=== PATIENT | female | born 1945 | race Caucasian/White ===

== ENCOUNTER 2017-09-10 11:44 | Day surgery (SDC) | payer MEDICARE, OTHER ==
[~2017-09-10] VITALS: Ht 162.6 cm; Wt 87.3 kg
[~2017-09-10 11:44] MED LIST: Allergy Relief10 M1 PO; Prinivil10 MG PO; RANI150; SPIR25 PO
== END 2017-09-10 14:17 | disposition home or self-care (01) ==
LOC: ORSCSDS 11:44
PROVIDERS: Internal Medicine Gastroenterology
PROC: 0DBK8ZX Excision of Ascending Colon, Via Natural or Artificial Opening Endoscopic, Diagnostic (ICD-10-PCS; principal; 2017-09-10 13:00)
DX: Z12.11 Encounter for screening for malignant neoplasm of colon (principal); D12.2 Benign neoplasm of ascending colon; K64.8 Other hemorrhoids; Z86.010 Personal history of colon polyps; K57.30 Diverticulosis of large intestine without perforation or abscess without bleeding; E66.9 Obesity, unspecified; Z68.34 Body mass index [BMI] 34.0-34.9, adult; Z79.899 Other long term (current) drug therapy; K21.9 Gastro-esophageal reflux disease without esophagitis
CPT/HCPCS: 88305; J7120

== ENCOUNTER 2018-11-01 20:52 | Emergency (ER) | payer MEDICARE, OTHER ==
[~2018-11-01] VITALS: Ht 160 cm; Wt 90.7 kg
[2018-11-01] MEDS ORDERED: XARELTO15 MG PO ×2 (22:41→23:18)
[2018-11-01] MEDS ORDERED: GABA250SO PO (22:43)
[2018-11-01] MEDS ORDERED: LEVOCETIRIZINE D5 MG PO (22:43)
[2018-11-01] MEDS ORDERED: Prilosec Otc20 MG PO (22:44)
[2018-11-01] MEDS ORDERED: MELA3 PO (22:45)
== END 2018-11-01 23:23 | disposition home or self-care (01) ==
LOC: ER 20:52
DX: I82.401 Acute embolism and thrombosis of unspecified deep veins of right lower extremity (principal); Z79.899 Other long term (current) drug therapy; I10 Essential (primary) hypertension
CPT/HCPCS: 99282

== ENCOUNTER 2019-02-05 11:49 | Day surgery (SDC) | payer MEDICARE, OTHER ==
[~2019-02-05] VITALS: Ht 160 cm; Wt 89.0 kg
[~2019-02-05 11:49] MED LIST changes: +GABAPENTIN250 MG/5 M PO; +LEVOCETIRIZINE D5 MG PO; +MELA3 PO; +Prilosec Otc20 MG PO; +XARELTO15 MG PO; +XARELTO20 MG PO
--- NOTE | 2019-02-05 12:38 | NUR ---
LUNGS CLEAR BILAT POST AND ANT. PAIN SCALE 0/10
--- NOTE | 2019-02-05 13:30 | NUR ---
PT TALKING WITH DAUGHTER; CALL LIGHT IN REACH.
--- NOTE | 2019-02-05 14:36 | NUR ---
DR CADENA IN ROOM TO SEE PT.
--- NOTE | 2019-02-05 14:51 | NUR ---
FULL REPORT PROVIDED CARLENE OLMOS TO ASSUME CARE OF PT IN RECOVERY ROOM.
--- NOTE | 2019-02-05 18:58 | NUR ---
1740-ASSUMED CARE OF PT. PT IS ALERT AND ORIENTED. PT IS FOLLOWING COMMANDS. PT HAS A VENOUSE SHEATH TO THE R GROIN WHERE IVC FILTER WAS PLACED. PT HAS A POPLITEAL & ANKLE VENOUS SHEATH. WHERE TPA IS RUNNING THROUGH THE ANKLE SHEATH. NO BLEEDING NOTED AT THIS TIME. PT IS AFEBRILE. PALPABLE PULSES. 1749-STARTED HEPARIN DRIP @ 300 UNITS/HR ORDERED INFUSING TO THE L AC IV. 1839-COMPLAINTS OF A SLIGHT HEADACHE. PT STATED SHE TAKES COFFEE EVERYDAY. BROUGHT IN PT'S DINNER. 1849-DR. CADENA CALLED. UPDATED HIM OF PT'S STATUS. CLARIFIED WITH DR. CADENA REGARDING POPLITEAL VENOUS SHEATH ACCESS.
--- NOTE | 2019-02-05 20:35 | NUR ---
PT RESTING IN BED. A/O X4. DENIES PAIN. HAS A VENOUS SHEATH TO R GROIN, WHERE IVC FILTER WAS PLACED, THAT IS COVERED WITH CLEAR OCCLUSIVE DRESSING. NO SIGNS OF BLEED FROM THAT SITE. ALSO HAS A POPLITEAL AND ANKLE SHEATH TO R SIDE THAT HAS TPA RUNNING INTO IT. PALPABLE PULSES. PT IS DOING WELL KEEPING LEG STRAIGHT. ASSISTED WITH BEDPAN. NO SIGN OF DISTRESS.
--- NOTE | 2019-02-06 00:24 | NUR ---
PT RESTING IN BED. A/O X4. NO COMPLAINTS. 2+ PEDAL PULSES. NO SIGNS OF BLEEDING FROM GROIN, ANKLE OR POPLITEAL SHEATHS. PT IS DOING WELL LAYING FLAT WITHOUT FLEXING R LEG. DECLINES PILLOWS TO BE PROPPED UNDER HER.
--- NOTE | 2019-02-06 08:15 | NUR ---
BEGINNING OF SHIFT Assumed care at 0700 with Danni CONCEPCION. Report recieved from Laquita CONCEPCION. Pt is alert and oriented, able to communicate needs. Verbalizes need to use bedpan. Pt follows instructions for mobility limitations when repositioning in bed. Groin sheath to right leg in place with transparent dressing C/D/I. Two sheaths noted on posterior leg, with C/D/I dressings, each sheath has alteplase infusing. Heparin infusing per orders to right AC.
--- NOTE | 2019-02-06 08:18 | NUR ---
BEGINNING OF SHIFT Assumed care at 0700 with Danni CONCEPCION. Report recieved from Laquita CONCEPCION. Pt is alert and oriented, able to communicate needs. Verbalizes need to use bedpan. Pt follows instructions for mobility limitations when repositioning in bed. Venous groin sheath to right leg in place with transparent dressing C/D/I. Two venous sheaths noted on posterior leg - popliteal and tibial, with C/D/I dressings, each sheath has alteplase infusing. Heparin infusing per orders to right AC.
--- NOTE | 2019-02-06 12:11 | NUR ---
UPDATE No changes since shift assessment. Pt remains on alteplase. Per Dr Win, alteplase is to continue infusing until pt is taken to systems testing laboratory technician. Fibrinogen lab drawn from existing peripheral IV access. Pt and family updated on plan of care.
--- NOTE | 2019-02-06 18:24 | NUR ---
SHIFT SUMMARY Pt returned from laboratory associate around 1720. Venous sheaths are no longer in place. Devin patch present to right femoral venous site and right popliteal venous site. Transparent dressing to right tibial venous site. Pt has new right jugular venous site dressed with a cloth dot; dressing C/D/I. Pt had 50 mL of clear-brown emesis. No coffee-ground appearance to emesis. Nausea and vomiting resolved with administration of zofran. Two attempts to reach Dr Win via cell phone to ask if xarelto is to be restarted tonight. Pt states she would prefer to stay overnight in the hospital and go home in the morning. Pt currently has two visitors in the room. Pt eating dinnner at this time, tolerating well.
--- NOTE | 2019-02-06 20:00 | NUR ---
ASSUMED CARE OF PT AT 1915. REPORT RECEIVED PARTIALLY AT BEDSIDE. PT PRESENTS IN BED. ALERT AND ORIENTED. PLEASANT AND COOPERATIVE WITH CARE AND ASSESSMENT. PT'S ACCESS SITES CHECKED AND VERIFIED WITH OFFGOING RN. WILL REVIEW CHART AND PLAN OF CARE FOR THIS PT.
--- NOTE | 2019-02-06 23:00 | NUR ---
PT HAS BEEN ABLE TO STAND WITH ASSISTANCE AND PIVOT TRANSFER TO BEDSIDE COMMODE. DID DON ORTHOSTATIC BLOOD PRESSURES FOR POSITION CHANGES. SEE GRAPHIC FLOWSHEET FOR DETAILS. PT DOES CLAIM SHE HAS SLIGHT VERTIGO WHILE STANDING. PT VOIDS Q.S. PASSES FLATUS. PT'S DAUGHT HAS LEFT FOR THE NIGHT. AND ARRANGED, SHE WILL RETURN IN AM TO PROVIDE TRANSPORTATION FOR PT UPON DISCHARGE.
--- NOTE | 2019-02-07 03:00 | NUR ---
PT CLAIMS THAT HER VERTIGO HAS IMPROVED. HAS HAD SOME INDIGESTION THIS AM. ACCESS SITES ALL REMAIN UNCHANGED FROM CHANGE OF SHIFT ASSESSMENT WITH OFFGOING RN. WILL CONTINUE TO MONITOR.
--- NOTE | 2019-02-07 06:27 | NUR ---
PT HAS BEEN MEDICATED ONCE THIS AM WITH 5 MG OXYCODONE. PT STATES THAT SHE IS HAVING SEVERE HEADACHES FROM POSSIBLY BEING WITHOUT COFFEE SINCE ADMIT. PT CURRENTLY RESTING IN BED. PT HAS BEEN UP TO BEDSIDE COMMODE SEVERAL TIMES THIS NIGHT WITHOUT COMPLAINTS OF VERTIGO. PT REMAINS IN SINUS RHYTHM SINUS JIN. MAINTAINS ON ROOM AIR WHEREAS SATURATIONS REMAIN > 90 PERCENT. NO COMPLAINTS OF CHEST PAIN OR PRESSURE. LOWER EXTREMITIES REMAIN EQUALLY WARM. NO CHANGES TO ACCESS SITES. NO HEMATOMAS OR OOZING. WILL CONTINUE TO MONITOR PT, AND WILL REPORT OFF TO ONCOMING RN.
--- NOTE | 2019-02-07 07:27 | NUR ---
ASSUMED CARE OF PT. PT IS ALERT AND ORIENTED. PT IS COMPLAINING OF A HEADACHE. SHE STATED SHE HAS NOT HAD HER COFFEE FOR 3 DAYS. SHE DRINKS COFFEE DAILY STATED. PUNCTURE SITES R GROIN, R NECK, R POPLITEAL, R TIBIAL ARE STABLE. NO HEMATOMA OR BLEEDING NOTED. PT HAS BEEN GETTING OUT OF BED. PT STATED SHE'S READY TO GO HOME. PT HAS DISCHARGE ORDERS WRITTEN FROM DR. CADENA.
--- NOTE | 2019-02-07 10:40 | NUR ---
READ DISCHARGE INSTRUCITIONS TO PATIENT AND DAUGHTER. SEND DISCHARGE PACKET WITH THEM. IV DISCONTINUED.
--- NOTE | 2019-02-07 10:41 | NUR ---
1040-READ DISCHARGE INSTRUCITIONS TO PATIENT AND DAUGHTER. SEND DISCHARGE PACKET WITH THEM. IVs TO R/L AC WERE DISCONTINUED BEFORE PT WAS SENT HOME.
[2019-02-08] MEDS ORDERED: LEVOCETIRIZINE D5 MG PO (17:50)
[2019-02-08] MEDS ORDERED: CEPH500 PO (19:31)
== END 2019-02-07 10:40 | disposition home or self-care (01) ==
LOC: MHTC 11:49 → ICUW 16:02 → MHTC 02-07 10:40
DX: I82.501 Chronic embolism and thrombosis of unspecified deep veins of right lower extremity (principal); E78.5 Hyperlipidemia, unspecified; I10 Essential (primary) hypertension; K21.9 Gastro-esophageal reflux disease without esophagitis; I87.8 Other specified disorders of veins
CPT/HCPCS: 36005; 37191; 37193; 37212; 37214; 75820; 76937; 85384; 96374; 96375; 96376; 99152; 99153; C1751; C1769; C1880; C1887; C1894; G0378; J1644; J2250; J2405; J2997; J3010; J7030; J7050; Q9967

== ENCOUNTER 2019-02-08 15:50 | Emergency (ER) | payer MEDICARE, OTHER ==
[~2019-02-08] VITALS: Ht 160 cm; Wt 88.5 kg
[2019-02-08 16:45] LABS: BASOPHILS ABSOLUTE AUTO 0.01 K/mm3 (0.00-0.23); BASOPHILS PERCENT AUTO 0 % (0-2); EOSINOPHILS ABSOLUTE AUTO 0.13 K/mm3 (0.00-0.68); EOSINOPHILS PERCENT AUTO 2 % (0-6); Hematocrit 37.5 % (33.0-51.0); Hemoglobin 12.4 g/dL (11.5-16.0); IMMATURE GRAN ABSOLUTE AUTO 0.03 K/mm3 (0.00-0.10); IMMATURE GRAN PERCENT AUTO 1 % (0-1); LYMPHOCYTES ABSOLUTE AUTO 1.78 K/mm3 (0.84-5.20); LYMPHOCYTES PERCENT AUTO 28 % (21-46); MONOCYTES ABSOLUTE AUTO 0.84 K/mm3 (0.16-1.47); MONOCYTES PERCENT AUTO 13 % (4-13); Mean Corpuscular HGB 34.4 pg (26.0-34.0); Mean Corpuscular HGB Conc 33.1 g/dL (31.5-36.5); Mean Corpuscular Volume 104 fL (80-100); Mean Platelet Volume 9.9 fL (9.1-12.4); NEUTROPHILS PERCENT AUTO 56 % (41-73); Platelet Count 266 K/mm3 (150-400); RDW Coefficient Variation 14.5 % (11.7-14.2); RDW Standard Deviation 55.5 fL (35.1-46.3); White Blood Cell Count 6.29 K/mm3 (4.00-11.30)
[2019-02-08 17:00] LABS: International Normalized Ratio 1.13; Prothrombin Time Results 11.8 Sec (9.7-11.5)
[2019-02-08 17:07] LABS: Alanine Aminotransfer (ALT/SGP 43 U/L (12-78); Albumin, Blood 3.6 g/dL (3.4-5.0); Albumin/Globulin Ratio 1.1 (0.8-1.8); Alk Phos 76 U/L (50-136); Anion Gap 8 mmol/L (6-16); Aspartate Aminotrans (AST/SGOT 33 U/L (12-37); Bilirubin, Total 0.2 mg/dL (0.1-1.0); Blood Urea Nitrogen 18 mg/dL (8-24); Bun/Creatinine Ratio 22.1 (12.0-20.0); CO2, Blood 25 mmol/L (21-32); Calcium, Blood 9.4 mg/dL (8.5-10.1); Chloride, Blood 105 mmol/L (98-108); Creatinine, Blood 0.82 mg/dL (0.40-1.00); Globulin, Blood 3.3 g/dL (2.2-4.0); Glomerular Filtration Rate >60 (60-); Glucose, Blood 120 mg/dL (70-99); Potassium, Blood 3.8 mmol/L (3.5-5.5); Sodium, Blood 138 mmol/L (136-145); Total Protein, Blood 6.9 g/dL (6.4-8.2)
[2019-02-08] MEDS ORDERED: LEVOCETIRIZINE D5 MG PO (17:50)
[2019-02-08 18:14] LABS: Source, Urine Clean Catch
[2019-02-08 18:31] LABS: Appearance, Urine Hazy (Clear); Bilirubin, Urine Neg (Neg); Blood, Urine 1+ (Neg); Color, Urine Yellow (P-Yellow); Glucose Qualitative, Urine Neg (Neg); Ketones, Urine Neg (Neg); Leukocyte Esterase, Urine 1+ (Neg); Nitrite, Urine Pos (Neg); Protein, Urine Neg (Neg); Specific Gravity, Urine 1.015 (1.003-1.022); Urobilinogen, Urine NORM (Normal); pH, Urine 6.5 (5.0-8.0)
[2019-02-08 18:44] LABS: Red Blood Cells, Urine 0-2 /hpf (0-2); Squamous Epithelial Cells Few /hpf (Few)
[2019-02-08 18:45] LABS: Bacteria Many /hpf
[2019-02-08] MEDS ORDERED: CEPH500 PO (19:31)
== END 2019-02-08 19:50 | disposition home or self-care (01) ==
LOC: ER 15:50
PROVIDERS: Physician Assistant
DX: S09.90XA Unspecified injury of head, initial encounter (principal); N39.0 Urinary tract infection, site not specified; R42 Dizziness and giddiness; W22.8XXA Striking against or struck by other objects, initial encounter; Z79.899 Other long term (current) drug therapy; I10 Essential (primary) hypertension
CPT/HCPCS: 36415; 70450; 80053; 81001; 85025; 85610; 87077; 87086; 87186; 93005; 93010; 96365; 99284-25; J0696

== ENCOUNTER 2019-02-28 11:33 | Emergency (ER) | payer MEDICARE, OTHER ==
[~2019-02-28] VITALS: Ht 162.6 cm; Wt 90.3 kg
[~2019-02-28 11:33] MED LIST changes: +CEPH500 PO
[2019-02-28] MEDS ORDERED: Norco 5-325 Ta1 EACH PO (12:10)
[2019-02-28] MEDS ORDERED: Bactrim Ds Tab1 EACH PO (12:10)
[2019-02-28] MEDS ORDERED: Keflex500 MG PO (12:10)
[2019-02-28] MEDS ORDERED: TEST STRIPS1 EACH XX (12:12)
== END 2019-02-28 12:35 | disposition home or self-care (01) ==
LOC: ER 11:33
DX: L03.221 Cellulitis of neck (principal); L03.311 Cellulitis of abdominal wall; I10 Essential (primary) hypertension; K21.9 Gastro-esophageal reflux disease without esophagitis; Z86.718 Personal history of other venous thrombosis and embolism; Z79.899 Other long term (current) drug therapy
CPT/HCPCS: 99282

== ENCOUNTER 2019-04-30 06:31 | Day surgery (SDC) | payer MEDICARE, OTHER ==
[~2019-04-30] VITALS: Ht 162.6 cm; Wt 89.0 kg
[~2019-04-30 06:31] MED LIST changes: +Bactrim Ds Tab1 EACH PO; +Keflex500 MG PO; +Norco 5-325 Ta1 EACH PO; +TEST STRIPS1 EACH XX
== END 2019-04-30 15:00 | disposition home or self-care (01) ==
LOC: MHTC 06:31
DX: Z45.2 Encounter for adjustment and management of vascular access device (principal); I82.509 Chronic embolism and thrombosis of unspecified deep veins of unspecified lower extremity; E78.5 Hyperlipidemia, unspecified; I10 Essential (primary) hypertension; K21.9 Gastro-esophageal reflux disease without esophagitis; M15.9 Polyosteoarthritis, unspecified; Z79.899 Other long term (current) drug therapy
CPT/HCPCS: 36010; 37193; 76937; 99152; 99153; C1769; C1773; C1880; C1887; C1894; J2250; J3010; J7030; Q9967

== ENCOUNTER 2019-05-09 09:39 | Emergency (ER) | payer MEDICARE, OTHER ==
[~2019-05-09] VITALS: Ht 162.6 cm; Wt 87.1 kg
[2019-05-09 10:07] LABS: Source, Urine Catheter
[2019-05-09 10:13] LABS: BASOPHILS ABSOLUTE AUTO 0.02 K/mm3 (0.00-0.23); BASOPHILS PERCENT AUTO 0 % (0-2); EOSINOPHILS ABSOLUTE AUTO 0.07 K/mm3 (0.00-0.68); EOSINOPHILS PERCENT AUTO 1 % (0-6); Hemoglobin 12.6 g/dL (11.5-16.0); IMMATURE GRAN ABSOLUTE AUTO 0.05 K/mm3 (0.00-0.10); IMMATURE GRAN PERCENT AUTO 1 % (0-1); LYMPHOCYTES ABSOLUTE AUTO 1.48 K/mm3 (0.84-5.20); LYMPHOCYTES PERCENT AUTO 20 % (21-46); MONOCYTES ABSOLUTE AUTO 0.52 K/mm3 (0.16-1.47); MONOCYTES PERCENT AUTO 7 % (4-13); Mean Corpuscular HGB 33.3 pg (26.0-34.0); Mean Corpuscular HGB Conc 32.3 g/dL (31.5-36.5); Mean Corpuscular Volume 103 fL (80-100); Mean Platelet Volume 9.9 fL (9.1-12.4); NEUTROPHILS PERCENT AUTO 72 % (41-73); Platelet Count 302 K/mm3 (150-400); RDW Coefficient Variation 14.2 % (11.7-14.2); Red Blood Cell Count 3.78 M/mm3 (3.80-5.20); White Blood Cell Count 7.54 K/mm3 (4.00-11.30)
[2019-05-09 10:14] LABS: Bilirubin, Urine Neg (Neg); Blood, Urine 3+ (Neg); Glucose Qualitative, Urine Neg (Neg); Ketones, Urine Neg (Neg); Leukocyte Esterase, Urine 1+ (Neg); Nitrite, Urine Neg (Neg); Protein, Urine Neg (Neg); Specific Gravity, Urine 1.015 (1.003-1.022); Urobilinogen, Urine NORM (Normal); pH, Urine 6.5 (5.0-8.0)
[2019-05-09 10:24] LABS: Appearance, Urine Hazy (Clear); Bacteria Rare /hpf; Color, Urine Yellow (P-Yellow); Squamous Epithelial Cells Rare /hpf (Few); White Blood Cells, Urine 0-2 /hpf (0-5)
[2019-05-09 10:26] LABS: Alanine Aminotransfer (ALT/SGP 23 U/L (12-78); Albumin, Blood 3.5 g/dL (3.4-5.0); Albumin/Globulin Ratio 0.9 (0.8-1.8); Alk Phos 75 U/L (50-136); Anion Gap 6 mmol/L (6-16); Aspartate Aminotrans (AST/SGOT 19 U/L (12-37); Bilirubin, Total 0.3 mg/dL (0.1-1.0); Blood Urea Nitrogen 18 mg/dL (8-24); Bun/Creatinine Ratio 25.4 (12.0-20.0); CO2, Blood 26 mmol/L (21-32); Chloride, Blood 107 mmol/L (98-108); Creatinine, Blood 0.71 mg/dL (0.40-1.00); Globulin, Blood 3.7 g/dL (2.2-4.0); Glomerular Filtration Rate >60 (60-); Glucose, Blood 127 mg/dL (70-99); Potassium, Blood 4.5 mmol/L (3.5-5.5); Sodium, Blood 139 mmol/L (136-145); Total Protein, Blood 7.2 g/dL (6.4-8.2); Troponin I <0.015 ng/mL (0.000-0.040)
[2019-05-09] MEDS ORDERED: Zofran4 MG PO (14:10)
[2019-05-09] MEDS ORDERED: Medi-Meclizine25 MG PO (14:10)
== END 2019-05-09 15:20 | disposition home or self-care (01) ==
LOC: ER 09:39
PROVIDERS: Emergency Medicine
DX: R42 Dizziness and giddiness (principal); I10 Essential (primary) hypertension; R31.9 Hematuria, unspecified; Z79.899 Other long term (current) drug therapy; Z79.01 Long term (current) use of anticoagulants
CPT/HCPCS: 80053; 81001; 84484; 85025; 87086; 93005; 93010; 96361; 96374; 99284-25; J2405; J7120; P9612

== ENCOUNTER → 2019-05-12 | Outpatient (CLI) | payer MEDICARE, OTHER ==
[~2019-05-12] MED LIST changes: +Medi-Meclizine25 MG PO; +Zofran4 MG PO
[2019-05-12 13:05] LABS: Appearance, Urine Hazy (Clear); Bacteria Many /hpf; Bilirubin, Urine Neg (Neg); Blood, Urine 2+ (Neg); Color, Urine Pale Yellow (P-Yellow); Glucose Qualitative, Urine Neg (Normal); Ketones, Urine Neg (Neg); Leukocyte Esterase, Urine Neg (Neg); Mucus Mod (0-Heavy); Nitrite, Urine Neg (Neg); Protein, Urine Neg (Neg); Squamous Epithelial Cells Mod /hpf (Few); Urobilinogen, Urine NORM (Normal)
== END | disposition home or self-care (01) ==
LOC: LAB SHORT 12:25 → LAB EV 12:25
PROVIDERS: Internal Medicine
DX: R31.21 Asymptomatic microscopic hematuria (principal)
CPT/HCPCS: 81001; 87077; 87086; 87186

== ENCOUNTER → 2019-06-06 | Outpatient (CLI) | payer MEDICARE, OTHER | END | disposition home or self-care (01) | LOC: LAB SHORT 13:01 → PLD 13:01 | DX: C54.1 Malignant neoplasm of endometrium (principal) | CPT/HCPCS: 88305 ==

== ENCOUNTER → 2019-06-06 | Outpatient (CLI) | payer MEDICARE, OTHER ==
[2019-06-09 14:08] LABS: HPV 16 Negative (Negative); HPV 18 Negative (Negative); HPV OTHER HR TYPES Negative (Negative)
== END | disposition home or self-care (01) ==
LOC: LAB SHORT 11:40 → LAB 11:40
PROVIDERS: Obstetrics & Gynecology
DX: Z01.419 Encounter for gynecological examination (general) (routine) without abnormal findings (principal)
CPT/HCPCS: 87624; G0123

== ENCOUNTER → 2019-07-27 | Outpatient (CLI) | payer MEDICARE ==
[2019-07-27 12:30] LABS: BASOPHILS ABSOLUTE AUTO 0.01 K/mm3 (0.00-0.23); BASOPHILS PERCENT AUTO 0 % (0-2); EOSINOPHILS ABSOLUTE AUTO 0.03 K/mm3 (0.00-0.68); EOSINOPHILS PERCENT AUTO 1 % (0-6); Hematocrit 38.9 % (33.0-51.0); Hemoglobin 12.8 g/dL (11.5-16.0); IMMATURE GRAN ABSOLUTE AUTO 0.02 K/mm3 (0.00-0.10); IMMATURE GRAN PERCENT AUTO 0 % (0-1); LYMPHOCYTES PERCENT AUTO 24 % (21-46); MONOCYTES ABSOLUTE AUTO 0.52 K/mm3 (0.16-1.47); MONOCYTES PERCENT AUTO 8 % (4-13); Mean Corpuscular HGB 33.6 pg (26.0-34.0); Mean Corpuscular HGB Conc 32.9 g/dL (31.5-36.5); Mean Corpuscular Volume 102 fL (80-100); Mean Platelet Volume 9.7 fL (9.1-12.4); NEUTROPHILS ABSOLUTE AUTO 4.08 K/mm3 (1.96-9.15); NEUTROPHILS PERCENT AUTO 66 % (41-73); Platelet Count 353 K/mm3 (150-400); RDW Coefficient Variation 13.8 % (11.7-14.2); RDW Standard Deviation 51.9 fL (35.1-46.3); Red Blood Cell Count 3.81 M/mm3 (3.80-5.20); White Blood Cell Count 6.16 K/mm3 (4.00-11.30)
[2019-07-27 12:38] LABS: Alanine Aminotransfer (ALT/SGP 25 U/L (12-78); Albumin, Blood 3.7 g/dL (3.4-5.0); Alk Phos 67 U/L (40-126); Anion Gap 11 mmol/L (6-16); Aspartate Aminotrans (AST/SGOT 16 U/L (12-37); Bilirubin, Total 0.3 mg/dL (0.1-1.0); Blood Urea Nitrogen 11 mg/dL (8-24); Bun/Creatinine Ratio 12.4 (12.0-20.0); CO2, Blood 24 mmol/L (21-32); Calcium, Blood 9.3 mg/dL (8.5-10.1); Chloride, Blood 104 mmol/L (98-108); Creatinine, Blood 0.89 mg/dL (0.40-1.00); Globulin, Blood 3.7 g/dL (2.2-4.0); Glomerular Filtration Rate >60 (60-); Glucose, Blood 102 mg/dL (70-99); Potassium, Blood 3.9 mmol/L (3.5-5.5); Sodium, Blood 139 mmol/L (136-145); Total Protein, Blood 7.4 g/dL (6.4-8.2)
== END | disposition home or self-care (01) ==
LOC: LAB SHORT 12:24 → LAB EV 12:24
PROVIDERS: Physician Assistant
DX: R19.7 Diarrhea, unspecified (principal)
CPT/HCPCS: 80053; 85025

== ENCOUNTER → 2019-07-28 | Outpatient (CLI) | payer MEDICARE ==
[2019-07-28 13:18] LABS: Adenovirus F 40/41 Not Detected (NOT DETECT); Astrovirus Not Detected (NOT DETECT); Campylobacter Sp Not Detected (NOT DETECT); Cryptosporidium Not Detected (NOT DETECT); Cyclospora Cayetanensis Not Detected (NOT DETECT); E. Coli O157 Not Detected (NOT DETECT); Entamoeba Histolytica Not Detected (NOT DETECT); Enteroaggregative E. coli-EAEC Not Detected (NOT DETECT); Enteropathogenic E. coli-EPEC Not Detected (NOT DETECT); Enterotoxigenic E. coli-ETEC Not Detected (NOT DETECT); Giardia Lamblia Not Detected (NOT DETECT); Norovirus GI/GII Not Detected (NOT DETECT); Plesiomonas Shigelloides Not Detected (NOT DETECT); Rotavirus A Not Detected (NOT DETECT); Salmonella Sp Not Detected (NOT DETECT); Sapovirus Not Detected (NOT DETECT); Shiga Toxin-prod E. coli-STEC Not Detected (NOT DETECT); Shigella/Enteroin E. coli-EIEC Not Detected (NOT DETECT); Vibrio Cholerae Not Detected (NOT DETECT); Vibrio Sp Not Detected (NOT DETECT); Yersinia Enterocolitica Not Detected (NOT DETECT)
== END | disposition home or self-care (01) ==
LOC: LAB EV 11:02
PROVIDERS: Physician Assistant
DX: R19.7 Diarrhea, unspecified (principal)
CPT/HCPCS: 0097U

== ENCOUNTER → 2021-03-31 | Outpatient (CLI) | payer MEDICARE, OTHER | LOC: LAB SHORT 12:20 → LAB 12:20 | DX: D48.5 Neoplasm of uncertain behavior of skin (principal); D04.9 Carcinoma in situ of skin, unspecified; C44.519 Basal cell carcinoma of skin of other part of trunk | CPT/HCPCS: 88305 ==